=== PATIENT | male | born 2000 | race African-American/Black ===

== ENCOUNTER 2018-03-30 17:39 | Emergency (ER) | payer BC ==
[2018-03-30 18:24] VITALS: BP 164/78
[2018-03-30] MEDS ORDERED: cefTRIAXone VIAL(*) 250 MG VIAL IM ONE (18:53)
[2018-03-30] MEDS ORDERED: Azithromycin TAB* 250 MG PO ONE (18:53)
[2018-03-30] MEDS ORDERED: Lidocaine 1%* 5 ML VIAL INJ ONE (18:54)
--- NOTE | 2018-03-30 18:55 | UC ---
Complaint Male HPI - HPI Summary HPI Summary: 17 yo male presents with burning with urination for the last 4 days. He tells me that he is most concerned about STDs. He had sexual intercourse with a new partner about 2 weeks ago and the condom broke during intercourse. About 4 days ago he has noticed intermittent stinging and burning with urination. He does not believe his partner had any diseases, but is unsure. He denies fever, chills , penile discharge, testicular pain, or lesions. - History of Current Complaint Chief Complaint: UCGU Stated Complaint: PERSONAL Time Seen by Provider: 03/30/18 18:26 Hx Obtained From: Patient Severity Currently: None Pain Intensity: 0 - Allergies/Home Medications Allergies/Adverse Reactions: Allergies Allergy/AdvReac Type Severity Reaction Status Date / Time No Known Allergies Allergy Verified 03/30/18 18:24 Home Medications: Home Medications NK [No Home Medications Reported] 03/30/18 [History Confirmed 03/30/18] PMH/Surg Hx/FS Hx/Imm Hx - Additional Past Medical History Additional PMH: None - Surgical History Surgical History: Yes Surgery Procedure, Year, and Place: tonsils - Family History Known Family History: Positive: None - Social History Occupation: Student Lives: Dormitory/Roommates Alcohol Use: Weekly Substance Use Type: Marijuana Substance Use Comment - Amount & Last Used: 3x/week Smoking Status (MU): Never Smoked Tobacco Review of Systems Constitutional: Negative Skin: Negative Respiratory: Negative Cardiovascular: Negative Gastrointestinal: Negative Genitourinary: Dysuria Neurological: Negative Psychological: Negative All Other Systems Reviewed And Are Negative: Yes Physical Exam - Summary Physical Exam Summary: GENERAL: NAD. WDWN. No pain distress. SKIN: No rashes, sores, lesions, or open wounds. NECK: Supple. Nontender. No lymphadenopathy. CHEST: CTAB. No r/r/w. No accessory muscle use. Breathing comfortably and in no distress. CV: RRR. Without m/r/g. Pulses intact. Cap refill <2seconds ABDOMEN: Soft. NTTP. No distention or guarding. No CVA tenderness. Bowel sounds present NEURO: Alert. PSYCH: Age appropriate behavior. Triage Information Reviewed: Yes Vital Signs: Initial Vital Signs Temp 99.0 F 03/30/18 18:18 Pulse 73 03/30/18 18:18 Resp 16 03/30/18 18:18 BP 164/78 03/30/18 18:18 Pulse Ox 100 03/30/18 18:18 Laboratory Tests 03/30/18 18:42 POC Urine Color Yellow POC Urine Clarity Clear POC Urine pH 7.0 POC Ur Specif [place] 1.010 POC Urine Protein Negative POC Ur Glucose (UA) Negative POC Urine Ketones Negative POC Urine Blood Negative POC Urine Nitrite Negative POC Urine Bilirubin Negative POC Urine Urobilinogen 0.2 POC U Leukocyte Esteras Negative Vital Signs Reviewed: Yes Male Genital Exam: Positive: Normal Genitalia, No Hernia, Other - No inguinal LAD. Circumcised penis. Negative: Epididymal Tenderness, Erythema, Inguinal Tenderness, Lesions, Testicular Tenderness (R), Testicular Tenderness (L), Urethral Discharge Complaint Male Course/Dx - Course Course Of Treatment: UA negative. Discussed with pt and he would like testing for GC/C, RPR, hepatitis, HIV, and herpes. He would also like to be treated for GC/C today. He was given Ceftriaxone and Azithromycin in the clinic and samples were obtained for testing and we will call him with results. - Differential Dx/Diagnosis Provider Diagnoses: Dysuria. STD testing Discharge - Sign-Out/Discharge Documenting (check all that apply): Patient Departure All imaging exams completed and their final reports reviewed: No Studies - Discharge Plan Condition: Stable Disposition: HOME Patient Education Materials: Chlamydia (ED), Gonorrhea (ED) Referrals: [facility] [Primary Care Provider] - Additional Instructions: If you develop a fever, shortness of breath, chest pain, new or worsening symptoms - please call your PCP or go to the ED. Your blood pressure was high at todays visit. Please see your primary provider within 4 weeks for recheck and re-evaluation. Please call us tomorrow night to ask about your urine results. - Billing Disposition and Condition Condition: STABLE Disposition: Home - Attestation Statements Provider Attestation: Per institutional requirements, I have reviewed the chart, however, I was not consulted specifically or made aware of this patient by the midlevel provider. I did not personally evaluate, interact with , or disposition this patient.
--- NOTE | 2018-04-01 15:23 | UC ---
- Progress Note Progress Note: Lab work from March 30, 2018 came back positive for chlamydia and negative for gonorrhea. On March 30, 2018 the patient was given Rocephin and days azithromycin therefore he is been treated for chlamydia. Nursing to call patient inform the patient of the results and appropriate follow -up. Discharge - Sign-Out/Discharge Documenting (check all that apply): Patient Departure All imaging exams completed and their final reports reviewed: No Studies - Discharge Plan Condition: Stable Disposition: HOME Patient Education Materials: Chlamydia (ED), Gonorrhea (ED) [facility] - Additional Instructions: If you develop a fever, shortness of breath, chest pain, new or worsening symptoms - please call your PCP or go to the ED. Your blood pressure was high at todays visit. Please see your primary provider within 4 weeks for recheck and re-evaluation. Please call us tomorrow night to ask about your urine results. - Billing Disposition and Condition Condition: STABLE Disposition: Home
[2018-04-01 15:35] LABS: Herpes Simplex Virus II IgG AB Negative (Negative)
== END 2018-03-30 19:31 | disposition home or self-care (01) ==
LOC: UCEAST 17:39
DX: R30.0 Dysuria (principal)
CPT/HCPCS: 36415; 80074; 81003; 86592; 86695; 86696; 86703; 87491; 87591; 96372; 99202; A9270-GY; G0463; J0696

== ENCOUNTER 2018-03-31 09:56 | Emergency (ER) | payer BC ==
--- NOTE | 2018-03-31 10:37 | ED ---
GI/ HPI - HPI Summary HPI Summary: A 17 y/o M presents to ED with c/o dysuria when ending his urinary stream onset 4-5 days ago. Associated sx: suprapubic abd pressure. Denies: sores and redness on his penis nor in his genital region, fever. Pt was having intercourse with a new sex partner (female) using a condom and it broke approx 11-12 days ago. He did not have immediate symptoms at that time. Per pt, his partner says she is not having any sx. Pt has a mild cough and n/v which he feels is unrelated to his chief complaint. Pt was seen at [facility] yesterday and had STD testing completed but has not received results. Pt has been unable to sleep and is "freaking" out. He wants his tests expedited. He denies taking daily meds. He was tested for STDs last year and everything came back negative. He was treated at [facility] with ceftriaxone 250mg IM and azithromycin 1gm po empirically for STD's and all testing has been sent. Vital signs while in room: HR 71 bpm, BP 148/89. Home Medications Medication Instructions Recorded Confirmed Type NK [No Home Medications Reported] 03/30/18 03/30/18 History - History of Current Complaint Chief Complaint: EDAbdPain Time Seen by Provider: 03/31/18 10:35 Stated Complaint: STD SCREENING Hx Obtained From: Patient, Medical Records Onset/Duration: Started Days Ago, Still Present Timing: Constant Severity: Mild Current Severity: Mild Pain Intensity: 0 - out of 10 Location of Pain: Suprapubic Additional Locations for Males: Penis - during urinartion Pain Characteristics: Burning Associated Signs and Symptoms: Positive: Abdominal Pain - suprapubic, pressure, New Sexual Partner, Other: - pos: difficulty sleeping. neg: redness on his penis nor in his genital region Additional Signs & Symptoms: Negative: Lesions Aggravating Factor(s): Urination Alleviating Factor(s): Nothing - Allergy/Home Medications Allergies/Adverse Reactions: Allergies Allergy/AdvReac Type Severity Reaction Status Date / Time No Known Allergies Allergy Verified 03/31/18 10:13 PMH/Surg Hx/FS Hx/Imm Hx Previously Healthy: No - Pos: mono, tonsillar abcess Endocrine/Hematology History: Denies: Hx Diabetes Respiratory History: Denies: Hx Chronic Obstructive Pulmonary Disease (COPD) - Surgical History Surgery Procedure, Year, and Place: tonsils (Summer 2017) - Immunization History Immunizations Up to Date: Yes Infectious Disease History: No Infectious Disease History: Denies: Traveled Outside the [place] in Last 30 Days - Family History Known Family History: Positive: None Family History: No known family illnesses. Both parents are still alive and well. - Social History Occupation: Student Lives: Dormitory/Roommates Alcohol Use: Weekly Hx Substance Use: Yes Substance Use Type: Reports: Marijuana Substance Use Comment - Amount & Last Used: 3x/week Hx Tobacco Use: No Smoking Status (MU): Never Smoked Tobacco Review of Systems Negative: Fever Cardiovascular: Negative Positive: Cough - mild Positive: Abdominal Pain - suprapubic, pressure, Vomiting, Nausea Positive: dysuria. Negative: other - neg: sores and redness on his penis/in his genital region Skin: Negative Neurological: Negative Psychological: Other - pos: difficulty sleeping All Other Systems Reviewed And Are Negative: Yes Physical Exam - Summary Physical Exam Summary: Appearance: Well-appearing, moderate pain distress, well-nourished Skin: Warm, color reflects adequate perfusion, dry Head: Normal Head/Face inspection, atraumatic Eyes: Conjunctiva clear ENT: Normal inspection Neck: Supple, no nodes, no JVD Respiratory: Lungs clear, normal breath sounds, no respiratory distress Cardio: RRR, No murmur, pulses normal, brisk capillary refill Abdomen: Soft, nontender Bowel sounds: Present Musculoskeletal: Strength Intact/ROM intact, no calf tenderness, no edema. Psychological: Normal Neuro: Alert, muscle tone normal, no focal deficit [place], aide, chaperoning exam Genital: circumcised penis, testes descended bilaterally, no femoral or inguinal hernia, no lesions on penis or perineal area, urethra is non-inflamed, no discharge Triage Information Reviewed: Yes Vital Signs On Initial Exam: Initial Vitals Temp Pulse Resp BP Pulse Ox 98.1 F 71 16 148/89 100 03/31/18 10:10 03/31/18 10:10 03/31/18 10:10 03/31/18 10:10 03/31/18 10:10 Vital Signs Reviewed: Yes Diagnostics - Vital Signs Vital Signs Temp Pulse Resp BP Pulse Ox 03/31/18 10:10 98.1 F 71 16 148/89 100 - Laboratory Lab Statement: Any lab studies that have been ordered have been reviewed, and results considered in the medical decision making process. Re-Evaluation - Re-Evaluation First Eval Re-Evaluation Time: 12:00 Change: Unchanged Comment: Pt informed that he has been treated empirically by [facility], and results are still pending. Pt given timeline for expected results. Advised to continue as usual, pending results. Today's result: Positive chlamydia. Pt treated with azithromycin. No further treatment needed. Needs to notify partner. GIGU Course/Dx - Course Course Of Treatment: Pt is a 17 y/o M presenting with ongoing dysuria, suprapubic abd pain for 4-5 days. Pt had a new sexual partner (female) 11-12 days ago and the condom broke. He denies fever, sores and redness on his penis/ in his genital region. Pt also has a mild cough and n/v which is unrelated to his chief complaint. Pt was seen at [facility] yesterday for STD testing but has been unable to sleep without knowing the results. Last STD test was last year and negative. 1120: Spoke with mona Jolley, for timeline on STD testing results. HSV was sent out and will be in 04/02 - 04/05. HIV results are expected today. G /C, syphilis and hepatitis results are expected tomorrow. Pt was treated at [facility] with ceftriaxone 1gm and azithromycin 1 gm po empirically, without incident. STD results pending. 1211: Per mona Blanco, urine has been received by lab. Allergies noted, high blood pressure noted. UA reviewed and unremarkable. Pt medications reviewed this visit. - Diagnoses Differential Diagnoses - Male: Constipation, Phimosis/Paraphimosis, Prostatitis , STD, Ureteral Calculi, Urethritis, Urinary Tract Infection Provider Diagnoses: Dysuria, Screening examination for STD (sexually transmitted disease), Elevated blood pressure reading without diagnosis of hypertension Discharge - Sign-Out/Discharge Documenting (check all that apply): Patient Departure - DC - Discharge Plan Condition: Stable Disposition: HOME Patient Education Materials: Sexually Transmitted Diseases (ED) Forms: *School Release Referrals: [facility] [Primary Care Provider] - 2 Days () Additional Instructions: Estimated timeline for STD testing results: - HSV (herpes) tests require being sent out and results are expected between 04/02 - 04/05. - HIV results are expected today, 03/31. - Gonorrhea/Chlamydia, Syphilis and Hepatitis results are expected tomorrow, 04/01. Your blood pressure reading today was 148/89, which is HYPERTENSIVE. Follow-up with your primary care provider within 4 weeks for blood pressure readings and further evaluation. RETURN TO THE EMERGENCY DEPARTMENT FOR CHANGING OR WORSENING SYMPTOMS. - Billing Disposition and Condition Condition: STABLE Disposition: Home - Attestation Statements Document Initiated by Catrachito: Yes Documenting Scribe: Marilyn Weeks Provider For Whom Catrachito is Documenting (Include Credential): Dr. Dipika De La Fuente MD Scribe Attestation: Marilyn Huerta, scribed for Dr. Dipika De La Fuente MD on 04/04/18 at 2050. Scribe Documentation Reviewed: Yes Provider Attestation: The documentation as recorded by the Marilyn an accurately reflects the service I personally performed and the decisions made by me, Dr. Dipika De La Fuente MD
[2018-03-31 12:36] LABS: Urine Appearance Cloudy; Urine Blood Negative (Negative); Urine Color Yellow; Urine Ketones Negative (Negative); Urine Protein Negative (Negative); Urine Specific Gravity 1.011 (1.010-1.030); Urine Urobilinogen Negative (Negative)
[2018-03-31 12:50] VITALS: BP 136/78
== END 2018-03-31 12:47 | disposition home or self-care (01) ==
LOC: ED 09:56
DX: R30.0 Dysuria (principal); A56.8 Sexually transmitted chlamydial infection of other sites; Z11.3 Encounter for screening for infections with a predominantly sexual mode of transmission; R03.0 Elevated blood-pressure reading, without diagnosis of hypertension
CPT/HCPCS: 81003; 99281

== ENCOUNTER 2018-04-23 11:51 | Emergency (ER) | payer BC ==
[2018-04-23 12:09] VITALS: BP 132/72
--- NOTE | 2018-04-23 12:14 | UC ---
Complaint Male HPI - HPI Summary HPI Summary: 17 y/o male presents to the urgent care requesting testing for trichomonas. pt reports he was here at the clinic about 1 month ago and tested positive for chlamydia, but was Tx prophylactically for GC/Chlamydia. He follow up w/ his PCP and he was Tx again for gonorrhea. But then his tested returned cleared for chlamydia. Pt states symptoms didn't fully resolved and he is concerned with trichomonas since he hasn't been tested for it and he still has a burning sensation after voiding associated w/ itchiness and a clear penile discharge at times. Pt denies fever, lower back pain, flank pain, abdominal pain, N/V/D - History of Current Complaint Chief Complaint: UCGU Stated Complaint: PERSONAL Time Seen by Provider: 04/23/18 12:09 Hx Obtained From: Patient Onset/Duration: Gradual Onset, Lasting Weeks - 1 we Timing: Intermittent, Lasting Seconds - burining after urination and one time cleat discharge, Lasting Weeks - 1 week Severity Initially: Mild Severity Currently: Mild Pain Intensity: 0 Pain Scale Used: 0-10 Numeric Location: Penis - burning sensation after urination Character: Burning Aggravating Factor(s): Voiding Alleviating Factor(s): Nothing Associated Signs And Symptoms: Positive: Negative, Penile Discharge - clear just one time. Negative: Back Pain, Fever, Hematuria, Dysuria, Constipation, Rectal Pain, Penile Swelling - Risk Factors Testicular Torsion: Negative - Allergies/Home Medications Allergies/Adverse Reactions: Allergies Allergy/AdvReac Type Severity Reaction Status Date / Time No Known Allergies Allergy Verified 04/23/18 12:09 PMH/Surg Hx/FS Hx/Imm Hx Previously Healthy: Yes - Pt denies PMHX - Surgical History Surgical History: Yes Surgery Procedure, Year, and Place: tonsils (Summer 2017) - Family History Known Family History: Positive: None - Pt denies FMHX Family History: No known family illnesses. Both parents are still alive and well. - Social History Occupation: Student Lives: With Family Alcohol Use: Weekly Substance Use Type: Marijuana Substance Use Comment - Amount & Last Used: 3x/week Smoking Status (MU): Never Smoked Tobacco - Immunization History Vaccination Up to Date: Yes Review of Systems All Other Systems Reviewed And Are Negative: Yes Constitutional: Positive: Negative Skin: Positive: Negative Eyes: Positive: Negative ENT: Positive: Negative Respiratory: Positive: Negative Cardiovascular: Positive: Negative Gastrointestinal: Positive: Negative Genitourinary: Positive: Frequency - and burnign sensation after urination, Vaginal/Penile Discharge - clear only once Motor: Positive: Negative Neurovascular: Positive: Negative Musculoskeletal: Positive: Negative Neurological: Positive: Negative Psychological: Positive: Negative Is Patient Immunocompromised?: No Physical Exam - Summary Physical Exam Summary: VITAL SIGNS: Reviewed. GENERAL: Patient is a well developed and nourished male adolescent who is sitting comfortable in the examining table. Patient is not in any acute respiratory distress. HEAD AND FACE: No signs of trauma. No ecchymosis, hematomas or skull depressions. No sinus tenderness. EYES: PERRLA, EOMI x 2, No injected conjunctiva, clear watery eyes, no nystagmus. No photophobia. EARS: Hearing grossly intact. Ear canals and tympanic membranes are within normal limits. MOUTH: pharynx with no erythema, no exudates,no palatal petechiae. no B/L tonsillar enlargement Uvula in midline. NECK: Supple, trachea is midline, no lymphadenopathy, no JVD, no carotid bruit, no c-spine tenderness, neck with full ROM. CHEST: Symmetric, no tenderness at palpation LUNGS: Clear to auscultation bilaterally. No wheezing or crackles. CVS: Regular rate and rhythm, S1 and S2 present, no murmurs or gallops appreciated. ABDOMEN: Soft, non-tender. No signs of distention. No rebound no guarding, and no masses palpated. Bowel sounds are normal. : Pt declined exam and requests test on urine. BACK:no scoliosis or lesions, non tender to palpation, No B/L CVA tenderness EXTREMITIES: FROM in all major joints, no edema, no cyanosis or clubbing. NEURO: Alert and oriented x 3. No acute neurological deficits. Speech is normal and follows commands. SKIN: Dry and warm Triage Information Reviewed: Yes Vital Signs: Initial Vital Signs Temp 99.4 F 04/23/18 12:03 Pulse 84 04/23/18 12:03 Resp 18 04/23/18 12:03 BP 132/72 04/23/18 12:03 Pulse Ox 100 04/23/18 12:03 Complaint Male Course/Dx - Course Course Of Treatment: 17 y/o male presents to the urgent care requesting testing for trichomonas. pt reports he was here at the clinic about 1 month ago and tested positive for chlamydia, but was Tx prophylactically for GC/Chlamydia. He follow up w/ his PCP and he was Tx again for gonorrhea. But then his tested returned cleared for chlamydia. Pt states symptoms didn't fully resolved and he is concerned with trichomonas since he hasn't been tested for it and he still has a burning sensation after voiding associated w/ itchiness and a clear penile discharge at times. Pt denies fever, lower back pain, flank pain, abdominal pain, N/V/D. Hx obtained. PE WNL, Pt declines examination. UA ordered:negative. Pt counseled on STD's and GC/Ch and trichomonas ordered. Pt requested prophylactive treatment for trihcomonas. Pt Rx metronidazole PO and Advised to increase fluid intake and avoid drinking alcohol while taking medication. Pt will be notified for further treatment. Pt advised If symptoms do not improve to return to the urgent care or f/u with PCP. Pt understood and agreed. Left the clinic ambulating. - Differential Dx/Diagnosis Differential Diagnosis/HQI/PQRI: Epididymitis, Urinary Tract Infection, Other - STD's. Provider Diagnosis: Screening for STD (sexually transmitted disease), Trichomonas exposure Discharge - Sign-Out/Discharge Documenting (check all that apply): Patient Departure - d/c home All imaging exams completed and their final reports reviewed: No Studies - Discharge Plan Condition: Stable Disposition: HOME Prescriptions: metroNIDAZOLE * 500 mg PO BID #14 tablet Patient Education Materials: Trichomoniasis (ED), Sexually Transmitted Diseases in Adolescents (ED) [facility] [[facility] - 3 Days Additional Instructions: 1- You were Rx Metronidazole PO PO x 7 days to treat Thrichomonas prophylactically as your request. Please take full course of medication, Avoid drinking alcohol while you are taking medication. increase fluid intake. UA= negative 2-Urine sent to labe to r/o Gonorrhea, chlamydia and Trichomonas. you will be notified for further treatment. Wear a condom during sexual intercourse 3-If symptoms do not improve please return to the urgent care or f/u with your PCP. - Billing Disposition and Condition Condition: STABLE Disposition: Home - Attestation Statements Provider Attestation: I was available for consult. This patient was seen by the MARCELINA. The patient was not presented to, seen by, or examined by me. -Pamela
--- NOTE | 2018-04-26 16:46 | UC ---
- Progress Note Progress Note: 04/26/2018 GC/Chlamydia=negative No change Mariann Carrillo PA-C Course/Dx - Diagnoses Provider Diagnoses: Screening for STD (sexually transmitted disease), Trichomonas exposure Discharge - Sign-Out/Discharge Documenting (check all that apply): Patient Departure - D/C home All imaging exams completed and their final reports reviewed: No Studies - Discharge Plan Condition: Stable Disposition: HOME Prescriptions: metroNIDAZOLE * 500 mg PO BID #14 tablet Patient Education Materials: Trichomoniasis (ED), Sexually Transmitted Diseases in Adolescents (ED) [facility] - 3 Days Additional Instructions: 1- You were Rx Metronidazole PO PO x 7 days to treat Thrichomonas prophylactically as your request. Please take full course of medication, Avoid drinking alcohol while you are taking medication. increase fluid intake. UA= negative 2-Urine sent to labe to r/o Gonorrhea, chlamydia and Trichomonas. you will be notified for further treatment. Wear a condom during sexual intercourse 3-If symptoms do not improve please return to the urgent care or f/u with your PCP. - Billing Disposition and Condition Condition: STABLE Disposition: Home
== END 2018-04-23 12:40 | disposition home or self-care (01) ==
LOC: UCEAST 11:51
DX: Z20.2 Contact with and (suspected) exposure to infections with a predominantly sexual mode of transmission (principal); Z11.3 Encounter for screening for infections with a predominantly sexual mode of transmission
CPT/HCPCS: 81003; 87491; 87591; 87661; 99212; G0463